=== PATIENT | male | born 1965 | race African-American/Black ===

== ENCOUNTER 2017-08-20 11:44 | Emergency (ER) | payer OTHER ==
[2017-08-20] MEDS: ONDANSETRON (ODT) 4 MG TAB ODT (12:12)
[2017-08-20] MEDS: DICYCLOMINE 10 MG CAP PO (12:12)
[2017-08-20] MEDS: IBUPROFEN 800 MG TAB PO (12:12)
== END 2017-08-20 12:28 | disposition home or self-care (01) ==
LOC: FTE 11:44
DX: R11.2 Nausea with vomiting, unspecified (principal); R19.7 Diarrhea, unspecified; R10.84 Generalized abdominal pain; R05 Cough
CPT/HCPCS: 99284; Z7502